=== PATIENT | female | born 1940 | race African-American/Black ===

== ENCOUNTER 2018-07-10 10:39 | Inpatient (IN) ==
[2018-07-10] MEDS ORDERED: SODIUM CHLORIDE 0.9% 500 ML IV STA (11:30)
[2018-07-10 11:54] LABS: Basophils % 0.3 % (0.0-0.8); Eosinophils # 0.1 10*3/uL (0.0-0.87); Eosinophils % 0.7 % (0.00-10.9); Hematocrit 26.1 VOL% (35.7-47.0); Immature Granulocytes % 2.1 %; Immature Granulocytes Absolute 0.28 #; Lymphocytes # 2.4 10*3/uL (1.4-4.0); Lymphocytes % 17.9 % (21.3-54.2); Mean Corpuscular HGB Conc 30.7 GM/DL (32-36); Mean Corpuscular Hemoglobin 27 PG (27-34); Mean Corpuscular Volume 88.5 FL (87-102); Monocytes # 0.7 10*3/uL (0.11-0.8); Monocytes % 5.6 % (1.7-12.7); NRBC # 0.02 10*3/uL; Neutrophils # 9.7 10*3/uL (1.4-7.4); Neutrophils % 73.4 % (38.7-73.9); Platelet Count 254 T/CUMM (130-400); Red Blood Count 2.95 MC/CUMM (3.8-5.5); Red Cell Distribution Width 20.4 % (9.3-17.3); White Blood Count 13.2 T/CUMM (4-12)
[2018-07-10 12:03] LABS: PT Patient Result 10.2 SECS
[2018-07-10 12:15] LABS: Apearance,Urine CLOUDY (Clear); Bilirubin,Urine Negative (Negative); Blood, Urine Negative (Negative); Glucose,Urine (UA) Negative (Negative); Hyaline Casts,Urine 8 /LPF (0-3); Ketones,Urine Negative (Negative); Mucus,Urine Occasional /LPF (Occasional); Nitrite,Urine Negative (Negative); Protein,Urine 100 MG/DL; RBC,Urine 5 /HPF (0-4); Squamous Epithelial Cell,Urine Occasional /HPF (0-10); Urine Color Amber (Yellow); Urine Specific Gravity 1.017 (1.001-1.035); WBC,Urine 58 /HPF (0-6)
[2018-07-10] MEDS ORDERED: cefTRIAXone 1,000 MG in SODIUM CHLORIDE 0.9% 100 ML IV STA (12:22)
[2018-07-10 12:37] LABS: Albumin 1.9 G/DL (3.4-5.0); Bilirubin,Total 0.8 MG/DL (0.2-1.0); Calcium 8.4 MG/DL (8.5-10.1); Osmolality,Calculated 301.7 MOS/KG (273-304); Total Protein 7.8 G/DL (6.4-8.3)
[2018-07-10] MEDS ORDERED: cefTRIAXone 1,000 MG in SYRINGE 1 EACH IV STA (12:42)
[2018-07-10] MEDS ORDERED: DEXTROSE 50% 25 GM/50 ML VIAL IV STA (13:00)
[2018-07-10 13:01] LABS: Sedimentation Rate-Westergren 125 MM/HR (0-30)
[2018-07-10] MEDS ORDERED: DEXTROSE 50% 25 GM/50 ML SYRINGE IV ONE (13:08)
[2018-07-10] MEDS ORDERED: PIPERACILLIN/TAZOBACTAM 3,375 MG in SODIUM CHLORIDE 0.9% 100 ML IV STA (14:01)
[2018-07-10] MEDS ORDERED: SODIUM CHLORIDE 0.9% 2,000 ML IV STA (14:33)
[2018-07-10] MEDS ORDERED: PANTOPRAZOLE 40 MG TABLET PO SCH (16:16)
[2018-07-10] MEDS ORDERED: ENOXAPARIN 30 MG/0.3 ML SYRINGE SUBCUT SCH (16:30)
[2018-07-10] MEDS ORDERED: MIDAZOLAM 2 MG/2 ML VIAL ONE (16:48)
[2018-07-10] MEDS ORDERED: SUCCINYLCHOLINE 200 MG/10 ML VIAL ONE (16:49)
[2018-07-10] MEDS: NOREPINEPHRINE 8 MG in SODIUM CHLORIDE 0.9% 242 ML IV PRN (16:50)
[2018-07-10] MEDS ORDERED: SUCCINYLCHOLINE 200 MG/10 ML VIAL IV ONE (17:00)
[2018-07-10] MEDS ORDERED: MIDAZOLAM 2 MG/2 ML VIAL IV ONE (17:00)
[2018-07-10] MEDS ORDERED: PROPOFOL 1,000 MG/100 ML BOTTLE IV ONE (17:16)
[2018-07-10] MEDS: PROPOFOL 1,000 MG/100 ML BOTTLE IV SCH ×2 (17:30→21:23)
[2018-07-10 17:42] LABS: ABG Base Excess -7.6 MMOL/L (-2.5-2.5); ABG HCO3 18.2 MMOL/L (20-26); ABG PCO2 35.4 MM HG (35-48); ABG PH 7.312 (7.35-7.45); ABG TCO2 16.9 MMOL/L (23-27); Allen Test Positive; Pt O2 Delivery Device Ventilator
[2018-07-10] MEDS: SODIUM CHLORIDE 0.9% 1,000 ML IV SCH (18:25)
[2018-07-10] MEDS ORDERED: LEVOFLOXACIN INJ 500 MG in PREMIX 1 EACH IV ONE (18:30)
[2018-07-10] MEDS: MEROPENEM 1,000 MG in SODIUM CHLORIDE 0.9% 100 ML IV SCH (19:51)
[2018-07-10] MEDS: OSELTAMIVIR 30 MG CAPSULE NG SCH (21:46)
[2018-07-10] MEDS ORDERED: GLUCAGON 1 MG VIAL IM PRN (23:28)
[2018-07-10] MEDS ORDERED: DEXTROSE 50% 25 GM/50 ML VIAL IV PRN (23:28)
[2018-07-10] MEDS: INSULIN REGULAR 100 UNIT/ML SUBCUT SCH (23:41)
[2018-07-11 01:49] LABS: Basophils % 0.1 % (0.0-0.8); Eosinophils # 0.1 10*3/uL (0.0-0.87); Eosinophils % 0.4 % (0.00-10.9); Hematocrit 23.1 VOL% (35.7-47.0); Hemoglobin 7.1 GM/DL (12.0-16.0); Immature Granulocytes % 3.9 %; Immature Granulocytes Absolute 0.53 #; Lymphocytes # 2.7 10*3/uL (1.4-4.0); Lymphocytes % 19.8 % (21.3-54.2); Mean Corpuscular HGB Conc 30.7 GM/DL (32-36); Mean Corpuscular Hemoglobin 27 PG (27-34); Mean Corpuscular Volume 86.2 FL (87-102); Mean Platelet Volume 10.1 FL (9.6-12.0); Monocytes # 0.7 10*3/uL (0.11-0.8); Monocytes % 4.9 % (1.7-12.7); Neutrophils # 9.6 10*3/uL (1.4-7.4); Neutrophils % 70.9 % (38.7-73.9); Platelet Count 210 T/CUMM (130-400); Red Blood Count 2.68 MC/CUMM (3.8-5.5); Red Cell Distribution Width 20.2 % (9.3-17.3); White Blood Count 13.6 T/CUMM (4-12)
[2018-07-11 02:06] LABS: Calcium 7.5 MG/DL (8.5-10.1); Osmolality,Calculated 309.4 MOS/KG (273-304); Potassium 4.3 MMOL/L (3.5-5.1)
[2018-07-11 02:12] LABS: Lymphocytes 28 % (20-55); Metamyelocytes 1 %; Segmented Neutrophils 67 % (50-85); Total Cells Counted 100
[2018-07-11 02:13] LABS: Hypochromasia 1+; Platelet Estimate Normal; Polychromasia Few; Target Cells Few
[2018-07-11] MEDS: PROPOFOL 1,000 MG/100 ML BOTTLE IV SCH ×3 (02:31→15:53)
[2018-07-11 04:08] LABS: ABG Base Excess -6.1 MMOL/L (-2.5-2.5); ABG HCO3 19.5 MMOL/L (20-26); ABG Oxygen Saturation 99.8 % (95-100); ABG PCO2 21.9 MM HG (35-48); ABG PH 7.478 (7.35-7.45); ABG TCO2 14.9 MMOL/L (23-27); Allen Test Positive; Pt O2 Delivery Device Ventilator
[2018-07-11] MEDS: INSULIN REGULAR 100 UNIT/ML SUBCUT SCH ×3 (06:30→18:07)
[2018-07-11] MEDS ORDERED: MAGNESIUM SULF RIDER 4 GM in PREMIX 1 EACH IV ONE (08:00)
[2018-07-11] MEDS: MEMANTINE 10 MG TABLET PO SCH ×2 (08:09→20:34)
[2018-07-11] MEDS: OSELTAMIVIR 30 MG CAPSULE NG SCH ×2 (08:09→20:34)
[2018-07-11] MEDS: MEROPENEM 1,000 MG in SODIUM CHLORIDE 0.9% 100 ML IV SCH ×2 (08:09→20:34)
[2018-07-11] MEDS: LANSOPRAZOLE ODT 30 MG TABLET NG SCH (08:09)
[2018-07-11] MEDS: glipiZIDE 5 MG TABLET PER TUBE SCH (08:10)
[2018-07-11] MEDS: ENOXAPARIN 40 MG/0.4 ML SYRINGE SUBCUT SCH (18:08)
[2018-07-11] MEDS ORDERED: LEVOFLOXACIN INJ 250 MG in PREMIX 1 EACH IV SCH (18:30)
[2018-07-11] MEDS: SODIUM CHLORIDE 0.9% 1,000 ML IV SCH (23:45)
[2018-07-12] MEDS: PROPOFOL 1,000 MG/100 ML BOTTLE IV SCH ×3 (00:45→19:32)
[2018-07-12] MEDS: INSULIN REGULAR 100 UNIT/ML SUBCUT SCH ×5 (01:24→23:40)
[2018-07-12 03:45] LABS: Basophils % 0.2 % (0.0-0.8); Eosinophils # 0.2 10*3/uL (0.0-0.87); Eosinophils % 0.8 % (0.00-10.9); Hematocrit 24.9 VOL% (35.7-47.0); Hemoglobin 7.6 GM/DL (12.0-16.0); Lymphocytes # 2.4 10*3/uL (1.4-4.0); Mean Corpuscular HGB Conc 30.5 GM/DL (32-36); Mean Corpuscular Hemoglobin 26 PG (27-34); Mean Corpuscular Volume 86.5 FL (87-102); Mean Platelet Volume 11.2 FL (9.6-12.0); Monocytes # 1.2 10*3/uL (0.11-0.8); Monocytes % 6.3 % (1.7-12.7); NRBC # 0.03 10*3/uL; Neutrophils # 15.3 10*3/uL (1.4-7.4); Neutrophils % 77.7 % (38.7-73.9); Platelet Count 199 T/CUMM (130-400); Red Blood Count 2.88 MC/CUMM (3.8-5.5); Red Cell Distribution Width 20.8 % (9.3-17.3); White Blood Count 19.7 T/CUMM (4-12)
[2018-07-12 04:08] LABS: Calcium 7.9 MG/DL (8.5-10.1); Osmolality,Calculated 306.7 MOS/KG (273-304); Potassium 4.4 MMOL/L (3.5-5.1)
[2018-07-12 04:24] LABS: ABG Base Excess -6.6 MMOL/L (-2.5-2.5); ABG Oxygen Saturation 99.8 % (95-100); ABG PCO2 29.1 MM HG (35-48); ABG TCO2 16.6 MMOL/L (23-27); Pt O2 Delivery Device Ventilator
[2018-07-12 04:28] LABS: Hypochromasia 1+; Lymphocytes 5 % (20-55); Platelet Estimate Normal; Segmented Neutrophils 89 % (50-85); Total Cells Counted 100
[2018-07-12] MEDS: SODIUM CHLORIDE 0.9% 1,000 ML IV SCH ×4 (05:59→21:34)
[2018-07-12] MEDS: MEROPENEM 1,000 MG in SODIUM CHLORIDE 0.9% 100 ML IV SCH ×2 (07:49→19:20)
[2018-07-12] MEDS: LANSOPRAZOLE ODT 30 MG TABLET NG SCH (09:19)
[2018-07-12] MEDS: MEMANTINE 10 MG TABLET PO SCH ×2 (09:19→21:34)
[2018-07-12] MEDS: glipiZIDE 5 MG TABLET PER TUBE SCH (09:20)
[2018-07-12] MEDS: OSELTAMIVIR 30 MG CAPSULE NG SCH (10:40)
[2018-07-12] MEDS: LEVOFLOXACIN 250 MG TABLET PER TUBE SCH (11:49)
[2018-07-12 12:53] LABS: Hepatitis B Surface Ag Quant < 0.10 Index; Hepatitis B Surface Ag Result Negative (Negative); Hepatitis C Virus Ab Quant 0.14 Index; Hepatitis C Virus Ab Result Negative (Negative)
[2018-07-12] MEDS: NOREPINEPHRINE 8 MG in SODIUM CHLORIDE 0.9% 242 ML IV PRN (16:45)
[2018-07-12] MEDS: ENOXAPARIN 40 MG/0.4 ML SYRINGE SUBCUT SCH (17:24)
[2018-07-13 03:38] LABS: Allen Test Positive; Pt O2 Delivery Device Ventilator
[2018-07-13 03:43] LABS: ABG Base Excess -7.6 MMOL/L (-2.5-2.5); ABG HCO3 18.2 MMOL/L (20-26); ABG Oxygen Saturation 99.5 % (95-100); ABG PCO2 36.5 MM HG (35-48); ABG PH 7.303 (7.35-7.45); ABG TCO2 17.3 MMOL/L (23-27)
[2018-07-13 05:03] LABS: Basophils % 0.2 % (0.0-0.8); Eosinophils # 0.2 10*3/uL (0.0-0.87); Eosinophils % 1.3 % (0.00-10.9); Hematocrit 21.3 VOL% (35.7-47.0); Hemoglobin 6.8 GM/DL (12.0-16.0); Immature Granulocytes % 5.8 %; Lymphocytes # 1.6 10*3/uL (1.4-4.0); Mean Corpuscular HGB Conc 31.9 GM/DL (32-36); Mean Corpuscular Hemoglobin 28 PG (27-34); Mean Corpuscular Volume 86.9 FL (87-102); Mean Platelet Volume 10.6 FL (9.6-12.0); Monocytes # 0.6 10*3/uL (0.11-0.8); Monocytes % 5.2 % (1.7-12.7); NRBC # 0.04 10*3/uL; Neutrophils # 8.9 10*3/uL (1.4-7.4); Neutrophils % 74.5 % (38.7-73.9); Platelet Count 195 T/CUMM (130-400); Red Blood Count 2.45 MC/CUMM (3.8-5.5); Red Cell Distribution Width 21.6 % (9.3-17.3)
[2018-07-13] MEDS: SODIUM CHLORIDE 0.9% 1,000 ML IV SCH ×2 (05:15→08:39)
[2018-07-13 05:22] LABS: Calcium 7.6 MG/DL (8.5-10.1); Osmolality,Calculated 308.6 MOS/KG (273-304); Potassium 4.2 MMOL/L (3.5-5.1)
[2018-07-13 05:23] LABS: Band Neutrophils 2 % (0-10); Lymphocytes 13 % (20-55); Platelet Estimate Normal; Segmented Neutrophils 80 % (50-85); Total Cells Counted 100
[2018-07-13 05:26] LABS: Prealbumin 5.6 MG/DL (20-40)
[2018-07-13] MEDS: INSULIN REGULAR 100 UNIT/ML SUBCUT SCH ×3 (06:05→18:41)
[2018-07-13] MEDS: MEROPENEM 1,000 MG in SODIUM CHLORIDE 0.9% 100 ML IV SCH ×2 (06:50→21:48)
[2018-07-13] MEDS ORDERED: SODIUM CHLORIDE 0.9% 1,000 ML IV PRN (08:14)
[2018-07-13] MEDS: SKIN HEALING OINT (AQUAPHOR) 50 GM TUBE TOP SCH (08:37)
[2018-07-13] MEDS: SODIUM HYPOCHLORITE 0.25% IRRIG 473 ML BOTTLE TOP SCH (08:37)
[2018-07-13] MEDS: LEVOFLOXACIN 250 MG TABLET PER TUBE SCH (08:37)
[2018-07-13] MEDS: LANSOPRAZOLE ODT 30 MG TABLET NG SCH (08:37)
[2018-07-13] MEDS: glipiZIDE 5 MG TABLET PER TUBE SCH ×2 (08:37→21:48)
[2018-07-13] MEDS: MEMANTINE 10 MG TABLET PO SCH ×2 (08:37→21:48)
[2018-07-13] MEDS: SODIUM CHLORIDE 0.45% 1,000 ML IV SCH ×2 (09:10→18:20)
[2018-07-13] MEDS: PROPOFOL 1,000 MG/100 ML BOTTLE IV SCH (17:35)
[2018-07-13] MEDS: ENOXAPARIN 40 MG/0.4 ML SYRINGE SUBCUT SCH (18:16)
[2018-07-14] MEDS: INSULIN REGULAR 100 UNIT/ML SUBCUT SCH ×5 (00:07→23:08)
[2018-07-14 03:39] LABS: ABG Base Excess -6.8 MMOL/L (-2.5-2.5); ABG HCO3 18.9 MMOL/L (20-26); ABG Oxygen Saturation 99.5 % (95-100); ABG PCO2 32.1 MM HG (35-48); ABG PH 7.353 (7.35-7.45); ABG TCO2 16.3 MMOL/L (23-27); Pt O2 Delivery Device Ventilator
[2018-07-14] MEDS: SODIUM CHLORIDE 0.45% 1,000 ML IV SCH ×2 (04:55→15:56)
[2018-07-14 06:06] LABS: Basophils % 0.3 % (0.0-0.8); Eosinophils # 0.2 10*3/uL (0.0-0.87); Hematocrit 29.4 VOL% (35.7-47.0); Immature Granulocytes Absolute 0.45 #; Lymphocytes # 1.2 10*3/uL (1.4-4.0); Lymphocytes % 13.8 % (21.3-54.2); Mean Corpuscular HGB Conc 32.7 GM/DL (32-36); Mean Corpuscular Hemoglobin 28 PG (27-34); Mean Corpuscular Volume 85.2 FL (87-102); Mean Platelet Volume 11.6 FL (9.6-12.0); Monocytes # 0.5 10*3/uL (0.11-0.8); Monocytes % 5.9 % (1.7-12.7); NRBC # 0.04 10*3/uL; Neutrophils # 6.6 10*3/uL (1.4-7.4); Platelet Count 185 T/CUMM (130-400); Red Cell Distribution Width 18.8 % (9.3-17.3)
[2018-07-14 06:12] LABS: Hemoglobin 9.6 GM/DL (12.0-16.0); Red Blood Count 3.45 MC/CUMM (3.8-5.5)
[2018-07-14 06:27] LABS: Calcium 7.6 MG/DL (8.5-10.1); Osmolality,Calculated 304.7 MOS/KG (273-304); Potassium 4.2 MMOL/L (3.5-5.1)
[2018-07-14] MEDS: MEROPENEM 1,000 MG in SODIUM CHLORIDE 0.9% 100 ML IV SCH ×2 (08:25→19:38)
[2018-07-14] MEDS: SODIUM HYPOCHLORITE 0.25% IRRIG 473 ML BOTTLE TOP SCH (08:50)
[2018-07-14] MEDS: SKIN HEALING OINT (AQUAPHOR) 50 GM TUBE TOP SCH (08:50)
[2018-07-14] MEDS: LEVOFLOXACIN 250 MG TABLET PER TUBE SCH (10:26)
[2018-07-14] MEDS: glipiZIDE 5 MG TABLET PER TUBE SCH ×2 (10:26→20:25)
[2018-07-14] MEDS: MEMANTINE 10 MG TABLET PO SCH ×2 (10:26→20:25)
[2018-07-14] MEDS: LANSOPRAZOLE ODT 30 MG TABLET NG SCH (10:26)
[2018-07-14] MEDS: ENOXAPARIN 40 MG/0.4 ML SYRINGE SUBCUT SCH (17:59)
[2018-07-14] MEDS: PROPOFOL 1,000 MG/100 ML BOTTLE IV SCH (18:01)
[2018-07-14] MEDS ORDERED: traMADol 50 MG TABLET PO ONE (19:54)
[2018-07-15] MEDS: SODIUM CHLORIDE 0.45% 1,000 ML IV SCH ×3 (01:13→22:00)
[2018-07-15] MEDS: INSULIN REGULAR 100 UNIT/ML SUBCUT SCH ×3 (05:08→17:24)
[2018-07-15] MEDS: MEROPENEM 1,000 MG in SODIUM CHLORIDE 0.9% 100 ML IV SCH ×2 (08:30→18:39)
[2018-07-15] MEDS: SODIUM HYPOCHLORITE 0.25% IRRIG 473 ML BOTTLE TOP SCH (08:30)
[2018-07-15] MEDS: SKIN HEALING OINT (AQUAPHOR) 50 GM TUBE TOP SCH (08:30)
[2018-07-15] MEDS: glipiZIDE 5 MG TABLET PER TUBE SCH ×2 (08:30→21:00)
[2018-07-15] MEDS: ceFAZolin 1,000 MG in SYRINGE 1 EACH IV SCH ×2 (08:30→15:34)
[2018-07-15] MEDS: MEMANTINE 10 MG TABLET PO SCH ×2 (08:31→21:07)
[2018-07-15] MEDS: LANSOPRAZOLE ODT 30 MG TABLET NG SCH (08:31)
[2018-07-15] MEDS: ENOXAPARIN 40 MG/0.4 ML SYRINGE SUBCUT SCH (17:33)
[2018-07-16] MEDS: ceFAZolin 1,000 MG in SYRINGE 1 EACH IV SCH ×3 (00:26→17:30)
[2018-07-16] MEDS: INSULIN REGULAR 100 UNIT/ML SUBCUT SCH ×4 (01:34→18:00)
[2018-07-16 06:21] LABS: Basophils % 0.5 % (0.0-0.8); Eosinophils # 0.2 10*3/uL (0.0-0.87); Eosinophils % 2.8 % (0.00-10.9); Hematocrit 28.1 VOL% (35.7-47.0); Hemoglobin 9.2 GM/DL (12.0-16.0); Immature Granulocytes % 4.5 %; Immature Granulocytes Absolute 0.29 #; Lymphocytes # 1.5 10*3/uL (1.4-4.0); Lymphocytes % 23.4 % (21.3-54.2); Mean Corpuscular HGB Conc 32.7 GM/DL (32-36); Mean Corpuscular Hemoglobin 28 PG (27-34); Mean Corpuscular Volume 84.1 FL (87-102); Mean Platelet Volume 11.1 FL (9.6-12.0); Monocytes # 0.5 10*3/uL (0.11-0.8); Monocytes % 8.3 % (1.7-12.7); Neutrophils # 3.9 10*3/uL (1.4-7.4); Neutrophils % 60.5 % (38.7-73.9); Platelet Count 139 T/CUMM (130-400); Red Blood Count 3.34 MC/CUMM (3.8-5.5); Red Cell Distribution Width 19.3 % (9.3-17.3); White Blood Count 6.5 T/CUMM (4-12)
[2018-07-16 06:40] LABS: Calcium 7.4 MG/DL (8.5-10.1); Osmolality,Calculated 279.5 MOS/KG (273-304); Potassium 3.9 MMOL/L (3.5-5.1)
[2018-07-16] MEDS: MEROPENEM 1,000 MG in SODIUM CHLORIDE 0.9% 100 ML IV SCH ×2 (09:42→19:00)
[2018-07-16] MEDS: glipiZIDE 5 MG TABLET PER TUBE SCH ×2 (09:44→22:06)
[2018-07-16] MEDS: SODIUM CHLORIDE 0.45% 1,000 ML IV SCH ×2 (09:44→21:46)
[2018-07-16] MEDS: LANSOPRAZOLE ODT 30 MG TABLET NG SCH (09:44)
[2018-07-16] MEDS: MEMANTINE 10 MG TABLET PO SCH ×2 (09:45→21:48)
[2018-07-16] MEDS: SKIN HEALING OINT (AQUAPHOR) 50 GM TUBE TOP SCH (09:46)
[2018-07-16] MEDS: SODIUM HYPOCHLORITE 0.25% IRRIG 473 ML BOTTLE TOP SCH (09:46)
[2018-07-16] MEDS: ENOXAPARIN 40 MG/0.4 ML SYRINGE SUBCUT SCH (18:45)
[2018-07-17] MEDS: INSULIN REGULAR 100 UNIT/ML SUBCUT SCH ×4 (00:59→21:58)
[2018-07-17] MEDS: ceFAZolin 1,000 MG in SYRINGE 1 EACH IV SCH (01:02)
[2018-07-17 05:33] LABS: Basophils % 0.3 % (0.0-0.8); Eosinophils # 0.1 10*3/uL (0.0-0.87); Eosinophils % 1.1 % (0.00-10.9); Hematocrit 29.2 VOL% (35.7-47.0); Hemoglobin 9.8 GM/DL (12.0-16.0); Immature Granulocytes % 4.2 %; Lymphocytes # 1.1 10*3/uL (1.4-4.0); Lymphocytes % 15.1 % (21.3-54.2); Mean Corpuscular HGB Conc 33.6 GM/DL (32-36); Mean Corpuscular Hemoglobin 28 PG (27-34); Mean Platelet Volume 10.8 FL (9.6-12.0); Monocytes # 0.4 10*3/uL (0.11-0.8); Monocytes % 4.9 % (1.7-12.7); Neutrophils # 5.3 10*3/uL (1.4-7.4); Neutrophils % 74.4 % (38.7-73.9); Platelet Count 147 T/CUMM (130-400); Red Blood Count 3.52 MC/CUMM (3.8-5.5); Red Cell Distribution Width 19.6 % (9.3-17.3); White Blood Count 7.1 T/CUMM (4-12)
[2018-07-17 05:57] LABS: Calcium 7.4 MG/DL (8.5-10.1); Osmolality,Calculated 285.4 MOS/KG (273-304); Potassium 3.6 MMOL/L (3.5-5.1)
[2018-07-17] MEDS: SODIUM HYPOCHLORITE 0.25% IRRIG 473 ML BOTTLE TOP SCH (07:45)
[2018-07-17] MEDS ORDERED: ACETAMINOPHEN 325 MG TABLET PO PRN (08:56)
[2018-07-17] MEDS: glipiZIDE 5 MG TABLET PER TUBE SCH ×2 (09:14→23:41)
[2018-07-17] MEDS: MEMANTINE 10 MG TABLET PO SCH ×2 (09:14→23:42)
[2018-07-17] MEDS: LANSOPRAZOLE ODT 30 MG TABLET NG SCH (09:14)
[2018-07-17] MEDS: SODIUM CHLORIDE 0.45% 1,000 ML IV SCH (09:22)
[2018-07-17] MEDS: SKIN HEALING OINT (AQUAPHOR) 50 GM TUBE TOP SCH (09:31)
[2018-07-17] MEDS: ENOXAPARIN 40 MG/0.4 ML SYRINGE SUBCUT SCH (18:48)
[2018-07-18] MEDS: INSULIN REGULAR 100 UNIT/ML SUBCUT SCH ×4 (01:05→20:23)
[2018-07-18 04:40] LABS: Basophils % 0.3 % (0.0-0.8); Eosinophils # 0.2 10*3/uL (0.0-0.87); Eosinophils % 2.8 % (0.00-10.9); Hematocrit 25.8 VOL% (35.7-47.0); Hemoglobin 8.7 GM/DL (12.0-16.0); Immature Granulocytes % 3.6 %; Immature Granulocytes Absolute 0.22 #; Lymphocytes # 1.2 10*3/uL (1.4-4.0); Lymphocytes % 19.6 % (21.3-54.2); Mean Corpuscular HGB Conc 33.7 GM/DL (32-36); Mean Corpuscular Hemoglobin 28 PG (27-34); Mean Corpuscular Volume 83.2 FL (87-102); Monocytes # 0.4 10*3/uL (0.11-0.8); Neutrophils # 4.1 10*3/uL (1.4-7.4); Neutrophils % 66.7 % (38.7-73.9); Platelet Count 127 T/CUMM (130-400); Red Cell Distribution Width 19.6 % (9.3-17.3); White Blood Count 6.1 T/CUMM (4-12)
[2018-07-18] MEDS: SODIUM CHLORIDE 0.45% 1,000 ML IV SCH ×4 (05:25→19:00)
[2018-07-18 05:27] LABS: Calcium 7.4 MG/DL (8.5-10.1); Osmolality,Calculated 278.7 MOS/KG (273-304); Potassium 3.6 MMOL/L (3.5-5.1)
[2018-07-18] MEDS: MEMANTINE 10 MG TABLET PO SCH ×2 (08:35→21:47)
[2018-07-18] MEDS: LANSOPRAZOLE ODT 30 MG TABLET NG SCH (08:35)
[2018-07-18] MEDS: glipiZIDE 5 MG TABLET PER TUBE SCH ×2 (08:35→21:47)
[2018-07-18] MEDS: SKIN HEALING OINT (AQUAPHOR) 50 GM TUBE TOP SCH (09:00)
[2018-07-18] MEDS: ENOXAPARIN 40 MG/0.4 ML SYRINGE SUBCUT SCH (20:50)
[2018-07-18] MEDS: SODIUM HYPOCHLORITE 0.25% IRRIG 473 ML BOTTLE TOP SCH (21:49)
[2018-07-19] MEDS: SODIUM CHLORIDE 0.45% 1,000 ML IV SCH ×3 (02:04→12:05)
[2018-07-19] MEDS: glipiZIDE 5 MG TABLET PER TUBE SCH (09:54)
[2018-07-19] MEDS: MEMANTINE 10 MG TABLET PO SCH (09:54)
[2018-07-19] MEDS: LANSOPRAZOLE ODT 30 MG TABLET NG SCH (09:55)
[2018-07-19] MEDS: INSULIN REGULAR 100 UNIT/ML SUBCUT SCH ×3 (09:55→12:18)
[2018-07-19] MEDS: ceFAZolin 1,000 MG in SYRINGE 1 EACH IV SCH (10:08)
[2018-07-19] MEDS: MEROPENEM 1,000 MG in SODIUM CHLORIDE 0.9% 100 ML IV SCH (10:08)
[2018-07-19] MEDS: SKIN HEALING OINT (AQUAPHOR) 50 GM TUBE TOP SCH (14:50)
[2018-07-19] MEDS: SODIUM HYPOCHLORITE 0.25% IRRIG 473 ML BOTTLE TOP SCH (14:50)
[2018-07-19 16:27] VITALS: BP 150/78
== END 2018-07-19 17:44 | DRG 870 ==
LOC: EDUNIT# → EDBD → N.ED 10:39 → N.EDINP 14:26 → SUATTDRO 14:26 → N.ICU 15:41 → N.5E 07-15 10:09
PROVIDERS: ADMIT Internal Medicine; ATTEND Hospitalist